=== PATIENT | male | born 1945 | race Two or more races ===

== ENCOUNTER 2021-09-28 07:15 | Emergency (ER) | payer MEDICARE, OTHER ==
[~2021-09-28] VITALS: Ht 180.3 cm; Wt 79.4 kg
--- NOTE | 2021-09-28 07:15 | NUR ---
Charan from home for glf, found by son, hx of demetia, alzheimers, on blood thinners, no head trauma, c/o back pain.
[2021-09-28] MEDS ORDERED: ACETAMINOPHEN ES 500 MG TABLET ONE ×2 (07:58→07:59)
[2021-09-28] MEDS: ACETAMINOPHEN ES 500 MG TABLET PO ONE (08:20)
--- NOTE | 2021-09-28 08:20 | NUR ---
PATIENT WENT FOR CT HEAD, SPINE VIA [facility].
--- NOTE | 2021-09-28 08:30 | NUR ---
THE PATIENT IS BACK FROM [place] [facility]IA [facility].
[2021-09-28] MEDS ORDERED: CYCLOBENZAPRINE 10 MG TABLET ONE (09:41)
[2021-09-28] MEDS ORDERED: KETOROLAC TROMETHAMINE INJ 30 MG/ML VIAL ONE (09:41)
[2021-09-28] MEDS: KETOROLAC TROMETHAMINE INJ 30 MG/ML VIAL IM ONE (09:45)
[2021-09-28] MEDS: CYCLOBENZAPRINE 10 MG TABLET PO ONE (09:45)
[2021-09-28] MEDS ORDERED: CLOP75TA15 PO (10:08)
[2021-09-28] MEDS ORDERED: BUPR100T7 PO (10:08)
[2021-09-28] MEDS ORDERED: FAMO40TA7 PO (10:08)
[2021-09-28] MEDS ORDERED: ATOR10TA PO (10:08)
[2021-09-28] MEDS ORDERED: AMLO-213 PO (10:08)
[2021-09-28] MEDS ORDERED: METO25TA4 PO (10:08)
[2021-09-28] MEDS ORDERED: QUET100T PO (10:08)
[2021-09-28] MEDS ORDERED: LOSA100T31 PO (10:08)
[2021-09-28] MEDS ORDERED: CYCL5TAB PO (10:28)
[2021-09-28] MEDS ORDERED: IBUP-1957 PO (10:28)
[2021-09-28 10:44] VITALS: BP 142/89
--- NOTE | 2021-09-28 10:44 | NUR ---
Patient discharged to home in stable condition. Written and verbal after care instructions given. Patient verbalizes understanding of instruction.
== END 2021-09-28 10:45 | disposition home or self-care (01) ==
LOC: ER 07:36
DX: R07.89 Other chest pain (principal); Z86.69 Personal history of other diseases of the nervous system and sense organs; Z79.1 Long term (current) use of non-steroidal anti-inflammatories (NSAID); Z79.899 Other long term (current) drug therapy
CPT/HCPCS: 70450; 71250; 72125; 93005; 96372; 99284; J1885

== ENCOUNTER 2025-03-10 21:06 | Inpatient (IN) | payer MEDICARE, OTHER ==
[~2025-03-10] VITALS: Ht 172.7 cm; Wt 79.4 kg
[~2025-03-10 21:06] MED LIST: AMLO-213 PO; ATOR10TA PO; BUPR100T7 PO; CLOP75TA15 PO; CYCL5TAB PO; FAMO40TA7 PO; IBUP-1957 PO; LOSA100T31 PO; METO25TA4 PO; QUET100T PO
[2025-03-10 21:35] LABS: PLATELET COUNT (AUTO) 214 K/uL (150-450); RED BLOOD CELL COUNT(AUTO) 4.45 MIL/uL (4.5-6.0); RED CELL DISTRIBUTION WIDTH 13.7 % (11.5-15.0); WHITE BLOOD COUNT (AUTO) 12.5 K/uL (4.3-11.0)
[2025-03-10] MEDS: IV NS 0.9% 1,000 ML BAG IV ONE (21:36)
[2025-03-10 21:46] LABS: CALCIUM, SERUM 7.7 mg/dL (8.5-10.1); CREATININE 1.4 mg/dL (0.6-1.3); SODIUM SERUM 137 mmol/L (136-145); UREA NITROGEN, BLOOD 16 mg/dL (7-18)
[2025-03-10 21:47] LABS: SERUM AMMONIA 18 umol/L (11-32)
[2025-03-10 21:49] LABS: INR 1.06 (0.91-1.10)
[2025-03-10 21:52] LABS: ALCOHOL, BLOOD 3 mg/dL (0-10); ASPARTATE AMINOTRANSFERASE 12 U/L (15-37); TOTAL PROTEIN, SERUM 6.0 g/dL (6.4-8.2)
[2025-03-10 21:54] LABS: LACTIC ACID 1.3 mmol/L (0.4-2.0)
[2025-03-10 21:59] LABS: APPEARANCE,URINE SLIGHTLY CLOUDY (CLEAR); BLOOD, URINE NEGATIVE Ery/uL (NEGATIVE); LEUKOCYTE ESTERASE ,URINE NEGATIVE (NEGATIVE); NITRITE, URINE NEGATIVE (NEGATIVE); UGLUCOSE 3+ mg/dL (NEGATIVE)
[2025-03-10 22:09] LABS: ADD URINE CULTURE NO
[2025-03-10 22:10] LABS: AMPHETAMINE, URINE NEGATIVE (NEGATIVE); BARBITURATE, URINE NEGATIVE (NEGATIVE); BENZODIAZEPINE, URINE NEGATIVE (NEGATIVE); CANNABINOID, URINE NEGATIVE (NEGATIVE); COCCAINE, URINE NEGATIVE (NEGATIVE); OPIATE, URINE NEGATIVE (NEGATIVE)
[2025-03-10] MEDS: ALBUTEROL FS 2.5 MG/3 ML VIAL.NEB NEB ONE (22:26)
[2025-03-10] MEDS: IPRATROPIUM NEB FS 0.5 MG/2.5 ML AMPUL.NEB NEB ONE (22:26)
[2025-03-10] MEDS ORDERED: ALBUTEROL FS 2.5 MG/3 ML VIAL.NEB ONE (22:28)
[2025-03-10] MEDS ORDERED: IPRATROPIUM NEB FS 0.5 MG/2.5 ML AMPUL.NEB ONE (22:28)
[2025-03-10 22:30] VITALS: O2SAT 98
[2025-03-10] MEDS ORDERED: PROCHLORPERAZINE EDISYLATE 10 MG/2 ML VIAL ONE (22:35)
[2025-03-10] MEDS ORDERED: KETOROLAC TROMETHAMINE INJ 30 MG/ML VIAL ONE (22:36)
[2025-03-10] MEDS: PROCHLORPERAZINE EDISYLATE 10 MG/2 ML VIAL IVP ONE (22:39)
[2025-03-10] MEDS: KETOROLAC TROMETHAMINE INJ 30 MG/ML VIAL IV ONE (22:39)
[2025-03-10] MEDS ORDERED: MAG HYDROX/AL HYDROX/SIMETH 30 ML UDC PO PRN (23:00)
[2025-03-10] MEDS ORDERED: ONDANSETRON HCL/PF 4 MG/2 ML VIAL IVP PRN (23:00)
[2025-03-10] MEDS ORDERED: DEXTROSE 50%-WATER 50 ML DISP.SYRIN IV PRN (23:00)
[2025-03-10] MEDS ORDERED: MAGNESIUM HYDROXIDE 30 ML UDC PO PRN (23:00)
[2025-03-10] MEDS ORDERED: ALBUTEROL FS 2.5 MG/0.5 ML VIAL.NEB NEB PRN (23:00)
[2025-03-10] MEDS ORDERED: IPRATROPIUM NEB FS 0.5 MG/2.5 ML AMPUL.NEB NEB PRN (23:00)
[2025-03-10] MEDS ORDERED: Z GUARD REMEDY 4 OZ OINT TP PRN (23:00)
[2025-03-10] MEDS ORDERED: ACETAMINOPHEN 325 MG TABLET PO PRN (23:00)
[2025-03-10] MEDS ORDERED: POTASSIUM CHLORIDE 20 MEQ TAB.PRT.SR PO ONE (23:34)
[2025-03-10 23:40] VITALS: O2SAT 95
[2025-03-10] MEDS: POTASSIUM CHLORIDE 20 MEQ TAB.PRT.SR PO ONE (23:45)
[2025-03-10] MEDS ORDERED: LEVOFLOXACIN 500 MG /D5W 100ML 100 ML IV ONE (23:48)
[2025-03-10] MEDS: LEVOFLOXACIN 500 MG /D5W 100ML 500 MG in PREMIX 1 EA IV ONE (23:50)
[2025-03-11 00:45] VITALS: BP 101/57; TEMP 97.5; O2SAT 100
[2025-03-11] MEDS: IV NS 0.9% 1,000 ML IV PRN (01:04)
[2025-03-11] MEDS: POTASSIUM CL. PREMIX PERIPHER. 50 ML IV SCH (01:22)
[2025-03-11 04:00] VITALS: BP 130/69; TEMP 98; O2SAT 100
[2025-03-11] MEDS: INSULIN REGULAR, HUMAN 100 UNIT/ML 3 ML VIAL SQ PRN (06:12)
[2025-03-11] MEDS: BLOOD SUGAR DIAGNOSTIC 1 EACH STRIP IN SCH (06:12)
[2025-03-11 06:53] LABS: PLATELET COUNT (AUTO) 168 K/uL (150-450); RED BLOOD CELL COUNT(AUTO) 4.09 MIL/uL (4.5-6.0); RED CELL DISTRIBUTION WIDTH 13.9 % (11.5-15.0); WHITE BLOOD COUNT (AUTO) 8.1 K/uL (4.3-11.0)
[2025-03-11 07:25] LABS: CALCIUM, SERUM 6.7 mg/dL (8.5-10.1); CREATININE 1.3 mg/dL (0.6-1.3); PHOSPHORUS 3.0 mg/dL (2.5-4.9); SODIUM SERUM 137.0 mmol/L (136-145); UREA NITROGEN, BLOOD 17.0 mg/dL (7-18)
[2025-03-11 07:28] LABS: LDL 35.0 mg/dL (0-99)
[2025-03-11] MEDS: PANTOPRAZOLE 40 MG TABLET.DR PO SCH (07:30)
[2025-03-11 08:00] VITALS: BP 121/67; TEMP 97.5; O2SAT 100
[2025-03-11] MEDS: CLOPIDOGREL BISULFATE 75 MG TABLET PO SCH (08:06)
[2025-03-11 10:16] LABS: CALCIUM, SERUM 7.4 mg/dL (8.5-10.1); CREATININE 1.6 mg/dL (0.6-1.3); SODIUM SERUM 136.0 mmol/L (136-145); UREA NITROGEN, BLOOD 21.0 mg/dL (7-18)
[2025-03-11] MEDS ORDERED: TRELEGY ELLIPTA IH (12:28)
[2025-03-11] MEDS ORDERED: DAPA10TA PO (12:28)
[2025-03-11] MEDS ORDERED: FOLI0.8T3 PO (12:28)
[2025-03-11] MEDS ORDERED: CARV12.52 PO (12:28)
[2025-03-11] MEDS ORDERED: HYDR100T27 PO (12:28)
[2025-03-11] MEDS ORDERED: DONE10TA44 PO (12:28)
[2025-03-11 20:00] VITALS: BP 128/55; TEMP 98.3; O2SAT 98
[2025-03-11] MEDS: ATORVASTATIN 10 MG TABLET PO SCH (21:52)
[2025-03-11] MEDS: QUETIAPINE FUMARATE 25 MG TABLET PO ONE (21:57)
[2025-03-11] MEDS: LEVOFLOXACIN 250 MG /D5W 50 ML 250 MG in PREMIX 1 EA IV SCH (21:58)
[2025-03-12] VITALS (8 sets, daily range): BP systolic 107–152; BP diastolic 50–65; TEMP 97.9–98.1; O2SAT 97–100
[2025-03-12] MEDS: LORAZEPAM 0.5 MG TABLET PO PRN (03:36)
[2025-03-12 07:10] LABS: PLATELET COUNT (AUTO) 281 K/uL (150-450); RED BLOOD CELL COUNT(AUTO) 4.60 MIL/uL (4.5-6.0); RED CELL DISTRIBUTION WIDTH 13.9 % (11.5-15.0); WHITE BLOOD COUNT (AUTO) 14.4 K/uL (4.3-11.0)
[2025-03-12 07:14] LABS: ASPARTATE AMINOTRANSFERASE 24.0 U/L (15-37); CALCIUM, SERUM 8.1 mg/dL (8.5-10.1); CREATININE 1.5 mg/dL (0.6-1.3); PHOSPHORUS 2.8 mg/dL (2.5-4.9); SODIUM SERUM 142.0 mmol/L (136-145); TOTAL PROTEIN, SERUM 6.5 g/dL (6.4-8.2); UREA NITROGEN, BLOOD 32.0 mg/dL (7-18)
[2025-03-12 07:21] LABS: CREATINE KINASE, TOTAL 689.0 U/L (39-308)
[2025-03-12] MEDS: DONEPEZIL 5 MG TABLET PO SCH (08:21)
[2025-03-12] MEDS: CARVEDILOL 12.5 MG TABLET PO SCH (08:22)
[2025-03-12] MEDS: FOLIC ACID 1 MG TABLET PO SCH (08:22)
[2025-03-12] MEDS: QUETIAPINE FUMARATE 100 MG TABLET PO SCH (08:23)
[2025-03-12] MEDS: FAMOTIDINE (20 MG) 20 MG TABLET PO SCH (08:28)
[2025-03-12] MEDS: LOSARTAN POTASSIUM 50 MG TABLET PO SCH (08:28)
[2025-03-12] MEDS: DAPAGLIFLOZIN PROPANEDIOL 10 MG TABLET PO SCH (09:00)
[2025-03-12] MEDS ORDERED: Medication Not On Formulary EA ([Trelegy Ellipta] 1 PUFF) IH SCH (09:00)
[2025-03-12] MEDS ORDERED: CLOPIDOGREL BISULFATE 75 MG TABLET PO SCH (09:00)
[2025-03-12] MEDS: POTASSIUM CL. PREMIX PERIPHER. 50 ML IV SCH (10:20)
[2025-03-12] MEDS: OLANZAPINE 10 MG VIAL IM ONE (14:24)
[2025-03-12] MEDS ORDERED: ATORVASTATIN 10 MG TABLET PO SCH (18:00)
[2025-03-12] MEDS ORDERED: DOSING PER PHARMACY-VANCOMYCIN IV XX PRN (20:30)
[2025-03-12] MEDS: VANCOMYCIN 1 GM in IV D5W 250ml IV ONE (22:01)
[2025-03-13 06:34] LABS: PLATELET COUNT (AUTO) 273 K/uL (150-450); RED BLOOD CELL COUNT(AUTO) 4.72 MIL/uL (4.5-6.0); RED CELL DISTRIBUTION WIDTH 13.8 % (11.5-15.0); WHITE BLOOD COUNT (AUTO) 9.6 K/uL (4.3-11.0)
[2025-03-13 06:58] LABS: CALCIUM, SERUM 8.1 mg/dL (8.5-10.1); CREATININE 1.3 mg/dL (0.6-1.3); SODIUM SERUM 146.0 mmol/L (136-145); UREA NITROGEN, BLOOD 35.0 mg/dL (7-18)
[2025-03-13 07:08] LABS: PTH, INTACT 30 pg/mL (15-65)
[2025-03-13 08:00] VITALS: BP 147/50; TEMP 97.3; O2SAT 99
[2025-03-13 16:00] VITALS: BP 120/52; TEMP 98.2; O2SAT 97
[2025-03-13] MEDS ORDERED: QUETIAPINE FUMARATE 25 MG TABLET PO PRN (17:00)
[2025-03-13 20:00] VITALS: BP 130/61; TEMP 98.4; O2SAT 98
[2025-03-13] MEDS: QUETIAPINE FUMARATE 25 MG TABLET PO ONE (20:23)
[2025-03-13] MEDS: VANCOMYCIN HCL 1.25 GM in IV D5W 250 ML IV SCH (20:23)
[2025-03-13] MEDS ORDERED: QUETIAPINE FUMARATE 100 MG TABLET PO SCH (21:00)
[2025-03-13] MEDS ORDERED: VANCOMYCIN 1 GM in IV D5W 250ml IV SCH (21:00)
[2025-03-13] MEDS: LEVOFLOXACIN (250MG) 250 MG TABLET PO SCH (22:05)
[2025-03-13] MEDS: ACETYLCYSTEINE 20% SOLN 800 MG/4 ML VIAL NEB SCH (23:30)
[2025-03-14 04:00] VITALS: BP 142/70; TEMP 98; O2SAT 99
[2025-03-14 07:00] VITALS: BP 131/61; TEMP 97.4; O2SAT 97
[2025-03-14 08:00] VITALS: BP 131/61; TEMP 97.4; O2SAT 97
[2025-03-14 09:55] VITALS: BP 131/61
[2025-03-14] MEDS ORDERED: LEVO500T90 PO (11:01)
[2025-03-14] MEDS ORDERED: QUETIAPINE FUMARATE 100 MG TABLET PO SCH (21:00)
[2025-03-24 16:07] LABS: *SPE A/G RATIO 0.8 (0.7-1.7); *SPE ALBUMIN 2.7 g/dL (2.9-4.4); *SPE ALPHA-1-GLOBULIN 0.3 g/dL (0.0-0.4); *SPE ALPHA-2-GLOBULIN 0.9 g/dL (0.4-1.0); *SPE BETA GLOBULIN 1.1 g/dL (0.7-1.3); *SPE GLOBULIN, TOTAL 3.2 g/dL (2.2-3.9); *SPE M-SPIKE Not Observed g/dL (Not Observed); *SPE PROTEIN TOTAL 5.9 g/dL (6.0-8.5); *SPEGAMMA GLOBULIN 0.9 g/dL (0.4-1.8)
== END 2025-03-14 12:32 | disposition home or self-care (01) | DRG 872 ==
LOC: ER 21:16 → TELE1 23:20 → MEDSG1 03-12 09:42
PROVIDERS: ADMIT Registered Nurse Psychiatric/Mental Health; ATTEND Nurse Practitioner Acute Care
DX: A41.9 Sepsis, unspecified organism (principal); J44.1 Chronic obstructive pulmonary disease with (acute) exacerbation; N17.9 Acute kidney failure, unspecified; F05 Delirium due to known physiological condition; G93.40 Encephalopathy, unspecified; F02.82 Dementia in other diseases classified elsewhere, unspecified severity, with psychotic disturbance; E11.65 Type 2 diabetes mellitus with hyperglycemia; E87.6 Hypokalemia; F02.80 Dementia in other diseases classified elsewhere, unspecified severity, without behavioral disturbance, psychotic disturbance, mood disturbance, and anxiety; G30.9 Alzheimer's disease, unspecified; I25.10 Atherosclerotic heart disease of native coronary artery without angina pectoris; E78.5 Hyperlipidemia, unspecified; E83.51 Hypocalcemia; Z95.5 Presence of coronary angioplasty implant and graft; E86.0 Dehydration; I10 Essential (primary) hypertension; Z79.02 Long term (current) use of antithrombotics/antiplatelets; D72.829 Elevated white blood cell count, unspecified; Z87.891 Personal history of nicotine dependence; F29 Unspecified psychosis not due to a substance or known physiological condition; F39 Unspecified mood [affective] disorder; F19.10 Other psychoactive substance abuse, uncomplicated
CPT/HCPCS: 36415; 70450-TC; 71045-TC; 80048-TC; 80053-TC; 80061-TC; 80076-TC; 81001; 82140-TC; 82550-TC; 82553; 82962-TC; 83605-TC; 83735-TC; 83970; 84100-TC; 84155; 84165; 84443-TC; 84481; 84484-TC; 85025-TC; 85730-TC; 87040-TC; 92526; 92611; 93307-TC; 97110-TC; 97116-TC; 97530-TC; A4216; A4223; G0378; G0480; J0780; J1815; J1885; J1956; J2919; J3373; J3480; J3490; J7030; J7050; J7060

== ENCOUNTER 2025-05-01 19:59 | Inpatient (IN) | payer MEDICARE, OTHER ==
[~2025-05-01] VITALS: Ht 165.1 cm; Wt 73.5 kg
[~2025-05-01 19:59] MED LIST changes: -AMLO-213 PO; -BUPR100T7 PO; +CARV12.52 PO; -CYCL5TAB PO; +DAPA10TA PO; +DONE10TA44 PO; +FOLI0.8T3 PO; +HYDR100T27 PO; -IBUP-1957 PO; +LEVO500T90 PO; -METO25TA4 PO; +TRELEGY ELLIPTA IH
[2025-05-01 20:50] VITALS: O2SAT 91
[2025-05-01] MEDS: ALBUTEROL FS 2.5 MG/3 ML VIAL.NEB CONTNEB ONE (20:50)
[2025-05-01] MEDS: IPRATROPIUM NEB FS 0.5 MG/2.5 ML AMPUL.NEB NEB ONE (20:50)
[2025-05-01] MEDS ORDERED: IPRATROPIUM NEB FS 0.5 MG/2.5 ML AMPUL.NEB ONE (20:53)
[2025-05-01] MEDS ORDERED: ALBUTEROL FS 2.5 MG/3 ML VIAL.NEB ONE (20:53)
[2025-05-01] MEDS ORDERED: IV NS 0.9% 500 ML BAG IV ONE (21:00)
[2025-05-01 21:05] LABS: PLATELET COUNT (AUTO) 238 K/uL (150-450); RED BLOOD CELL COUNT(AUTO) 5.33 MIL/uL (4.5-6.0); RED CELL DISTRIBUTION WIDTH 14.1 % (11.5-15.0); WHITE BLOOD COUNT (AUTO) 10.2 K/uL (4.3-11.0)
[2025-05-01 21:15] LABS: CALCIUM, SERUM 8.6 mg/dL (8.5-10.1); CREATININE 1.4 mg/dL (0.6-1.3); SODIUM SERUM 141.0 mmol/L (136-145); UREA NITROGEN, BLOOD 14.0 mg/dL (7-18)
[2025-05-01 21:50] VITALS: O2SAT 98
[2025-05-01 22:30] VITALS: BP 94/64; TEMP 98.1; O2SAT 93
[2025-05-01] MEDS ORDERED: ONDANSETRON HCL/PF 4 MG/2 ML VIAL IVP PRN (22:30)
[2025-05-01] MEDS ORDERED: IPRATROPIUM NEB FS 0.5 MG/2.5 ML AMPUL.NEB NEB PRN (22:30)
[2025-05-01] MEDS ORDERED: ALBUTEROL FS 2.5 MG/3 ML VIAL.NEB NEB PRN (22:30)
[2025-05-01] MEDS ORDERED: MAG HYDROX/AL HYDROX/SIMETH 30 ML UDC PO PRN (22:30)
[2025-05-01] MEDS ORDERED: ACETAMINOPHEN 325 MG TABLET PO PRN (22:30)
[2025-05-01] MEDS ORDERED: MAGNESIUM HYDROXIDE 30 ML UDC PO PRN (22:30)
[2025-05-01] MEDS: IV NS 0.9% 1,000 ML IV PRN (22:55)
[2025-05-02] VITALS: BP 116/60; TEMP 98.1; O2SAT 95
[2025-05-02 04:00] VITALS: BP 104/59; TEMP 97.7; O2SAT 94
[2025-05-02 08:00] VITALS: BP 124/75; TEMP 97.9; O2SAT 95
[2025-05-02] MEDS: PANTOPRAZOLE 40 MG TABLET.DR PO SCH (08:01)
[2025-05-02 08:41] LABS: PLATELET COUNT (AUTO) 219 K/uL (150-450); RED BLOOD CELL COUNT(AUTO) 5.03 MIL/uL (4.5-6.0); RED CELL DISTRIBUTION WIDTH 13.9 % (11.5-15.0); WHITE BLOOD COUNT (AUTO) 9.7 K/uL (4.3-11.0)
[2025-05-02 08:50] LABS: CALCIUM, SERUM 8.4 mg/dL (8.5-10.1); CREATININE 1.3 mg/dL (0.6-1.3); PHOSPHORUS 4.6 mg/dL (2.5-4.9); SODIUM SERUM 142.0 mmol/L (136-145); UREA NITROGEN, BLOOD 19.0 mg/dL (7-18)
[2025-05-02] MEDS: POTASSIUM CHLORIDE 20 MEQ TAB.PRT.SR PO SCH (10:02)
[2025-05-02 12:00] VITALS: BP 139/59; TEMP 97.6; O2SAT 94
[2025-05-02] MEDS ORDERED: HOME MED MISCELLANEOUS XX SCH (12:30)
[2025-05-02] MEDS: FOLIC ACID 1 MG TABLET PO SCH (12:50)
[2025-05-02] MEDS: QUETIAPINE FUMARATE 100 MG TABLET PO SCH (12:50)
[2025-05-02] MEDS: CLOPIDOGREL BISULFATE 75 MG TABLET PO SCH (12:50)
[2025-05-02] MEDS: DAPAGLIFLOZIN PROPANEDIOL 10 MG TABLET PO SCH (13:02)
[2025-05-02 16:00] VITALS: BP 134/68; TEMP 97.8; O2SAT 94
[2025-05-02] MEDS: ATORVASTATIN 40 MG TABLET PO SCH (17:05)
[2025-05-02 20:00] VITALS: BP 121/62; TEMP 98.6; O2SAT 92
[2025-05-02] MEDS: DONEPEZIL 5 MG TABLET PO SCH (22:00)
[2025-05-03] VITALS: BP 137/68; TEMP 98.4; O2SAT 95
[2025-05-03 04:00] VITALS: BP 126/51; TEMP 98.6; O2SAT 98
[2025-05-03 04:20] VITALS: BP 126/51; TEMP 98.4; O2SAT 98
[2025-05-03 08:00] VITALS: BP 133/62; TEMP 97.9; O2SAT 95
[2025-05-03] MEDS: OLANZAPINE 10 MG VIAL IM ONE (08:15)
[2025-05-03] MEDS ORDERED: AZIT250T13 PO (11:17)
[2025-05-03] MEDS ORDERED: PRED20TA PO (11:17)
[2025-05-03 12:00] VITALS: BP 133/62; TEMP 97.9; O2SAT 95
[2025-05-03] MEDS ORDERED: QUETIAPINE FUMARATE 25 MG TABLET PO SCH (17:00)
[2025-05-03] MEDS ORDERED: QUETIAPINE FUMARATE 100 MG TABLET PO SCH (21:00)
== END 2025-05-03 14:21 | disposition home or self-care (01) | DRG 190 ==
LOC: ER 20:06 → TELE1 21:59
PROVIDERS: ADMIT Nurse Practitioner Family; ATTEND Nurse Practitioner Acute Care
DX: J44.1 Chronic obstructive pulmonary disease with (acute) exacerbation (principal); N17.0 Acute kidney failure with tubular necrosis; G30.9 Alzheimer's disease, unspecified; I12.9 Hypertensive chronic kidney disease with stage 1 through stage 4 chronic kidney disease, or unspecified chronic kidney disease; N18.9 Chronic kidney disease, unspecified; F29 Unspecified psychosis not due to a substance or known physiological condition; D63.8 Anemia in other chronic diseases classified elsewhere; F02.A11 Dementia in other diseases classified elsewhere, mild, with agitation; E78.5 Hyperlipidemia, unspecified; E87.6 Hypokalemia; K21.9 Gastro-esophageal reflux disease without esophagitis; Z79.899 Other long term (current) drug therapy; Z95.5 Presence of coronary angioplasty implant and graft; I25.10 Atherosclerotic heart disease of native coronary artery without angina pectoris; F17.210 Nicotine dependence, cigarettes, uncomplicated; N25.0 Renal osteodystrophy; R73.03 Prediabetes
CPT/HCPCS: 36415; 71045-TC; 71250-TC; 80048-TC; 83735-TC; 84100-TC; 85025-TC; 93970-TC; A4223; G0378; J2919; J3490; J7030